=== PATIENT | female | born 1955 | race Caucasian/White ===

== ENCOUNTER 2018-09-20 09:02 | Day surgery (SDC) | payer BC ==
[2018-09-20] MEDS ORDERED: MIDAZOLAM 1 MG/ML 2 ML INJ ×2 (11:47)
[2018-09-20] MEDS ORDERED: FENTAnyl 50 MCG/ML VIAL (11:47)
== END 2018-09-20 12:24 | disposition home or self-care (01) ==
LOC: GIL 09:02
DX: Z12.11 Encounter for screening for malignant neoplasm of colon (principal); K64.8 Other hemorrhoids; D12.6 Benign neoplasm of colon, unspecified
CPT/HCPCS: 45380; 88305